=== PATIENT | female | born 2005 | race Caucasian/White ===

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

== ENCOUNTER 2024-05-08 16:32 | Emergency (ER) | payer MEDICAID, OTHER ==
[~2024-05-08] VITALS: Ht 160 cm; Wt 51.4 kg
[2024-05-08 16:41] VITALS: TEMP 98.7
[2024-05-08] MEDS: IBUPROFEN 600 MG TABLET PO ONE (16:47)
[2024-05-08] MEDS: ONDANSETRON 4 MG TABLET PO ONE (16:48)
[2024-05-08] MEDS: ACETAMINOPHEN 500 MG TABLET PO ONE (16:48)
[2024-05-08 16:53] LABS: COVID AG,FIA SOURCE NASAL SWAB
[2024-05-08 17:10] LABS: INFLUENZA TYPE A NEGATIVE FOR TYPE A (NEGATIVE); INFLUENZA TYPE B NEGATIVE FOR TYPE B (NEGATIVE); SARS-COV2 (COVID) ANTIGEN,FIA Negative (Negative)
[2024-05-08 18:29] VITALS: BP 115/60; PULSE 75; RESP 16; O2SAT 98
== END 2024-05-08 19:47 | disposition home or self-care (01) ==
LOC: EMS 16:32
DX: J06.9 Acute upper respiratory infection, unspecified (principal); M62.838 Other muscle spasm; Z20.822 Contact with and (suspected) exposure to COVID-19
CPT/HCPCS: 99283; 87426; 87804; Q0162